=== PATIENT | male | born 1930 | race Caucasian/White ===

== ENCOUNTER 2016-02-16 19:20 | Emergency (ER) | payer OTHER ==
[~2016-02-16] VITALS: Ht 167.6 cm; Wt 75.0 kg
[2016-02-16 19:24] VITALS: Ht 167.6 cm; Wt 75.0 kg
[2016-02-16] MEDS ORDERED: CEFTRIAXONE 1 GM/50 ML (PMX) 50 ML IVPB STA (20:01)
[2016-02-16] MEDS ORDERED: ALBUTEROL 0.5% (NEB) 2.5 MG/0.5 ML AMP HHN STA (20:01)
[2016-02-16] MEDS ORDERED: SODIUM CHLORIDE 0.9% 1L BAG IV* STA (20:01)
[2016-02-16] MEDS ORDERED: AZITHROMYCIN 500MG/NS (PMX) 250 ML IV STA (20:01)
[2016-02-16] MEDS ORDERED: IPRATROPIUM (NEB) 0.5 MG/2.5 ML AMP HHN ONE (20:30)
[2016-02-16] MEDS ORDERED: METHYLPREDNISOLONE 125 MG INJ IV ONE (20:30)
[2016-02-16 20:51] LABS: BASOPHILS % 0.5 % (0.0-2.0); EOSINOPHILS # 0.2 10^3/ul (0.0-0.5); HEMATOCRIT 39.5 % (42.0-52.0); HEMOGLOBIN 13.2 g/dl (14.0-18.0); LYMPHOCYTES # 0.6 10^3/ul (0.8-2.9); LYMPHOCYTES % 7.1 % (15.0-51.0); MEAN CORPUSCULAR HEMOGLOBIN 31.2 pg (29.0-33.0); MEAN CORPUSCULAR HGB CONC 33.4 g/dl (32.0-37.0); MEAN CORPUSCULAR VOLUME 93.3 fl (82.0-101.0); MEAN PLATELET VOLUME 9.9 fl (7.4-10.4); MONOCYTE # 0.8 10^3/ul (0.3-0.9); NEUTROPHIL # 6.7 10^3/ul (1.6-7.5); NEUTROPHILS % 80.4 % (39.0-77.0); PLATELET COUNT 168 10^3/UL (140-440); RED BLOOD COUNT 4.23 10^6/ul (4.70-6.10); RED CELL DISTRIBUTION WIDTH 14.4 % (11.5-14.5); UNCORRECTED WBC 8.4 10^3/ul (4.8-10.8); WHITE BLOOD COUNT 8.4 10^3/ul (4.8-10.8)
[2016-02-16 20:52] LABS: CONDITION 1
[2016-02-16 20:57] LABS: ALBUMIN 4.2 g/dl (3.3-4.9)
--- NOTE | 2016-02-16 20:57 | RADRPT ---
PROCEDURE: XR Chest. CLINICAL INDICATION: Possible sepsis. TECHNIQUE: Single frontal view of the chest was obtained COMPARISON: None FINDINGS: Cardiomegaly. Mild pulmonary mass congestion and patchy air space disease. There is no pleural effusion or pneumothorax. IMPRESSION: Cardiomegaly and mild failure. RPTAT: [facility] Physician Oscar Date Time Electronically viewed and signed by Ameena Hayward Physician on 02/16/2016 20:57 RS/
[2016-02-16 20:58] LABS: POTASSIUM 5.2 mmol/L (3.5-5.1)
[2016-02-16 21:00] LABS: ALBUMIN/GLOBULIN RATIO 1.5; BILIRUBIN,INDIRECT 0.7 mg/dl (0-1.1); BILIRUBIN,TOTAL 0.7 mg/dl (0.2-1.3); CREATININE 1.86 mg/dl (0.61-1.24)
[2016-02-16 21:01] LABS: CALCIUM 8.7 mg/dl (8.4-10.2); INR 0.99; PROTIME 13.1 Sec (12.2-14.2)
[2016-02-16 21:13] LABS: TROPONIN-I 0.036 ng/ml (0.00-0.12)
[2016-02-16] MEDS ORDERED: OSELTAMIVIR 75 MG CAP PO ONE (21:30)
[2016-02-16] MEDS ORDERED: ALBU18HF INHALATION (21:35)
[2016-02-16] MEDS ORDERED: OSLT75C PO (21:35)
--- NOTE | 2016-02-16 21:39 | ERD ---
ER Documentation Chief Complaint Date/Time DATE: 02/16/16 TIME: 21:38 Chief Complaint cough with chest congestion x days HPI Patient is a 85-year-old male with Parkinson's disease, diabetes, and high blood pressure who presents with cough and congestion. He has had these symptoms for the past 3 days. The symptoms were worse at night. He is wheezing. He had fever and chills. He has had no treatment as of yet. His is sick with similar symptoms. Upon review of old medical records this is the patient's first visit to the emergency department. ROS All systems reviewed and are negative except as per history of present illness. Medications Home Meds Active Scripts Albuterol Sulfate* (Ventolin HFA*) 18 Gm Hfa.aer.ad, 2 PUFF INHALATION Q4H, #1 INHALER Prov:CYNDIE OLIVAS MD 02/16/16 Oseltamivir Phosphate* (Tamiflu*) 75 Mg Capsule, 75 MG PO BID for 5 Days, CAP Prov:CYNDIE OLIVAS MD 02/16/16 Allergies Allergies: Coded Allergies: No Known Allergy (Unverified , 02/16/16) PMhx/Soc Parkinson's, diabetes, and hypertension Anesthesia Reaction: No Hx Respiratory Disorders: No Hx Alcohol Use: No Hx Substance Use: No Hx Tobacco Use: No Smoking Status: Never smoker FmHx Family History: diabetes Physical Exam Vitals Vital Signs Date Time Temp Pulse Resp B/P Pulse Ox O2 Delivery O2 Flow Rate FiO2 02/16/16 22:01 97 20 130/58 94 Room Air 02/16/16 20:20 89 26 98 21 02/16/16 19:24 99.7 81 20 196/87 98 Physical Exam Const: Mild distress secondary to shortness of breath Head: Atraumatic Eyes: Normal Conjunctiva ENT: Normal External Ears, Nose and Mouth. Neck: Full range of motion..~ No meningismus. Resp: Diffuse expiratory wheezing with tachypnea Cardio: Regular rate and rhythm, no murmurs Abd: Soft, non tender, non distended. Normal bowel sounds Skin: No petechiae or rashes Back: No midline or flank tenderness Ext: No cyanosis, or edema Neur: Awake and alert, resting tremor of Parkinson's Psych: Normal Mood and Affect Result Diagram: 02/16/16201902/16/162019 Results 24 hrs Laboratory Tests Test 1/6/17 20:20 Activated Partial Thromboplast Time 37.0Sec Alanine Aminotransferase (ALT/SGPT) 25IU/L Albumin 4.2g/dl Albumin/Globulin Ratio 1.50 Alkaline Phosphatase 98IU/L Anion Gap 18 Aspartate Amino Transf (AST/SGOT) 91IU/L Basophils # 0.010^3/ul Basophils % 0.5% Blood Urea Nitrogen 36mg/dl Calcium Level 8.7mg/dl Carbon Dioxide Level 24mmol/L Chloride Level 107mmol/L Creatinine 1.86mg/dl Direct Bilirubin 0.00mg/dl Eosinophils # 0.210^3/ul Eosinophils % 2.0% Globulin 2.80g/dl Glucose Level 195mg/dl Hematocrit 39.5% Hemoglobin 13.2g/dl INR International Normalized Ratio 0.99 Indirect Bilirubin 0.7mg/dl Lactic Acid Level 1.4mmol/L Lymphocytes # 0.610^3/ul Lymphocytes % 7.1% Mean Corpuscular Hemoglobin 31.2pg Mean Corpuscular Hemoglobin Concent 33.4g/dl Mean Corpuscular Volume 93.3fl Mean Platelet Volume 9.9fl Monocytes # 0.810^3/ul Monocytes % 10.0% Neutrophils # 6.710^3/ul Neutrophils % 80.4% Nucleated Red Blood Cells # 0.010^3/ul Nucleated Red Blood Cells % 0.0/100WBC Platelet Count 45906^3/UL Potassium Level 5.2mmol/L Prothrombin Time 13.1Sec Prothrombin Time Ratio 1.0 Red Blood Count 4.2310^6/ul Red Cell Distribution Width 14.4% Sodium Level 144mmol/L Total Bilirubin 0.7mg/dl Total Protein 7.0g/dl Troponin I 0.036ng/ml White Blood Count 8.410^3/ul Current Medications Medications (Trade) Dose Ordered Sig/Tevin Route PRN Reason Start Time Stop Time Status Last Admin Dose Admin Sodium Chloride 2330 ml 2,330 ml BOLUS OVER 2 HOURS STAT IV* 02/16/16 20:01 02/16/16 20:03 DC 02/16/16 20:38 Ceftriaxone Sodium 50 ml @ 100 mls/hr ONCE STAT IVPB 02/16/16 20:01 02/16/16 20:30 DC 02/16/16 20:35 Azithromycin (Zithromax 500mg/ NS (Pmx)) 250 ml @ 250 mls/hr ONCE STAT IV 02/16/16 20:01 02/16/16 21:00 DC 02/16/16 20:54 Albuterol (Proventil 0.5% (Neb)) 5 mg ONCE STAT HHN 02/16/16 20:01 02/16/16 20:03 DC 02/16/16 20:26 Ipratropium Eva (Atrovent 0.02% (Neb)) 0.5 mg ONCE ONCE HHN 02/16/16 20:30 02/16/16 20:31 DC 02/16/16 20:25 Methylprednisolone Sodium Succinate (Solu-Medrol) 125 mg ONCE ONCE IV 02/16/16 20:30 02/16/16 20:31 DC 02/16/16 20:35 Oseltamivir Phosphate (Tamiflu) 75 mg ONCE ONCE PO 02/16/16 21:30 02/16/16 21:31 DC 02/16/16 21:47 Procedures/MDM EKG read by me: Rate/Rhythm: Regular rate and rhythm at a rate of 88 Intervals: Normal Impression: No evidence of ischemia or arrhythmia PROCEDURE: XR Chest. CLINICAL INDICATION: Possible sepsis. TECHNIQUE: Single frontal view of the chest was obtained COMPARISON: None FINDINGS: Cardiomegaly. Mild pulmonary mass congestion and patchy air space disease. There is no pleural effusion or pneumothorax. IMPRESSION: Cardiomegaly and mild failure. RPTAT: [facility] Physician Oscar Date Time Electronically viewed and signed by Physician Oscar on 02/16/2016 20:57 Patient is a 85-year-old male who presents with cough and congestion. He was found to have influenza A+. He was given albuterol, Atrovent, and normal saline for fluid resuscitation. I did offer admission but the patient and family refused and would prefer to go home at this time. I think this is a reasonable option at this time and I will treat with Tamiflu. The first dose was given in the emergency department. At this point there is no sign of pneumonia or pneumothorax. I doubt pulmonary embolism. I doubt acute coronary syndrome. The patient will need to follow-up with his primary doctor within 24- 48 hours for reevaluation. I told him he can return for any worsening symptoms. I will also give a Ventolin inhaler. Departure Diagnosis: Primary Impression: Influenza Additional Impression: Cough Condition: Fair Patient Instructions: Influenza (Adult) Referrals: Your doctor Additional Instructions: Call your primary care doctor TOMORROW for an appointment during the next 1-2 days.See the doctor sooner or return here if your condition worsens before your appointment time. CYNDIE OLIVAS MD Feb 16, 2016 21:38
[2016-02-16 22:01] VITALS: BP 130/58; PULSE 97; RESP 20
== END 2016-02-16 22:01 | disposition home or self-care (01) ==
LOC: E/R 19:20
DX: J11.1 Influenza due to unidentified influenza virus with other respiratory manifestations (principal); G20 Parkinson's disease; E11.9 Type 2 diabetes mellitus without complications; I10 Essential (primary) hypertension
CPT/HCPCS: 36415; 71010; 80053; 83605; 84484; 85025; 85610; 85730; 87040; 87400; 94664; 96374; 96375; 99285; G9035; J0456; J0696; J2930; J7030